=== PATIENT | female | born 1975 | race Caucasian/White ===

== ENCOUNTER 2016-04-23 09:55 | Outpatient (CLI) | payer MEDICAID | END 2016-04-23 09:56 | disposition home or self-care (01) | DX: E04.0 Nontoxic diffuse goiter (principal); F41.8 Other specified anxiety disorders; E66.9 Obesity, unspecified ==

== ENCOUNTER 2017-03-28 14:32 | Emergency (ER) | payer MEDICAID ==
--- NOTE | 2017-03-28 16:33 | ED Physician Documentation ---
PD HPI URI - Stated complaint Stated Complaint: EAR PX/CHEST CONGESTION/DIFF BREATHING - Chief complaint Chief Complaint: Resp - History obtained from History obtained from: Patient - History of Present Illness Timing - onset: Other (1 month of illness with initially cough but now more sinus pressure. Cough is much better. No fevers or possibility of . She does not have any health problems.) Review of Systems Constitutional: denies: Fever, Chills Nose: reports: Rhinorrhea / runny nose, Congestion, Sinus pressure / pain. denies: Epistaxis Throat: reports: Sore throat Respiratory: reports: Cough. denies: Dyspnea GI: denies: Abdominal Pain PD PAST MEDICAL HISTORY - Past Medical History Cardiovascular: None Respiratory: Asthma Neuro: None Endocrine/Autoimmune: None GI: None ELECTRONIC REPAIR TROUBLESHOOTER: None : None HEENT: None Psych: Anxiety Musculoskeletal: None Derm: None - Past Surgical History Past Surgical History: No - Present Medications Home Medications: Ambulatory Orders Medication Instructions Recorded Confirmed Albuterol [Ventolin Hfa] 1 puffs INH DAILY PRN 04/05/14 03/28/17 Beclomethasone 40 Mcg [Qvar 40] 1 puffs INH BID 04/05/14 03/28/17 Venlafaxine [Effexor] 75 mg ORAL DAILY 04/05/14 03/28/17 Amox/Clav 875/125 [Augmentin] 1 each PO Q12H #20 tablet 03/28/17 Mometasone Furoate [Nasonex] 1 spray NS BID #1 spray.pump 03/28/17 predniSONE [Deltasone] 60 mg PO DAILY 5 Days tablet 03/28/17 - Allergies Allergies/Adverse Reactions: Allergies Allergy/AdvReac Type Severity Reaction Status Date / Time latex Allergy Rash Verified 04/05/14 09:53 Penicillins Allergy Unknown Verified 04/05/14 09:53 - Social History Does the pt smoke?: No Smoking Status: Never smoker Does the pt drink ETOH?: No Does the pt have substance abuse?: No - Immunizations Immunizations are current?: Yes - POLST Patient has POLST: No PD ED PE NORMAL - Vitals Vital signs reviewed: Yes - General General: Alert and oriented X 3, No acute distress - HEENT HEENT: Ears normal, Pharynx benign - Neck Neck: Supple, no meningeal sign, No bony TTP, No adenopathy - Cardiac Cardiac: RRR, No murmur - Respiratory Respiratory: No respiratory distress, Clear bilaterally - Abdomen Abdomen: Non tender - Derm Derm: No rash - Neuro Neuro: Alert and oriented X 3, emergency management consultant 2-12 intact Results - Vitals Vitals: Vital Signs - 24 hr 03/28/17 14:49 Temperature 36.5 C Heart Rate 100 Respiratory 16 Rate Blood Pressure 143/93 H O2 Saturation 97 Oxygen O2 Source Room air PD MEDICAL DECISION MAKING - ED course ED course: Symptoms consistent with sinus infection, benign physical findings but given the time course would merit a trial of antibiotics. Departure - Departure Disposition: Home, Self Care Clinical Impression: Sinusitis Qualifiers: Sinusitis location: maxillary Chronicity: acute Recurrence: recurrent Qualified Code(s): J01.01 - Acute recurrent maxillary sinusitis Condition: Good Record reviewed to determine appropriate education?: Yes Instructions: ED Sinusitis Abx Tx, ED Sinusitis No Abx Prescriptions: Amox/Clav 875/125 [Augmentin] 1 each PO Q12H #20 tablet Mometasone Furoate [Nasonex] 1 spray NS BID #1 spray.pump predniSONE [Deltasone] 60 mg PO DAILY 5 Days tablet Comments: Call your doctor to arrange a follow-up appointment, make the next available appointment. In the interim, return anytime if worse or if new symptoms develop. Your blood pressure was elevated today on check into the emergency department. This does not mean that you have hypertension, it is a common phenomenon to come to the emergency department and have elevated blood pressure. I recommend that you see your primary care physician within the week to have it rechecked when you are feeling better.
[2017-03-28 16:43] VITALS: BP 122/84
== END 2017-03-28 16:41 | disposition home or self-care (01) ==
LOC: ED 14:32
DX: J01.01 Acute recurrent maxillary sinusitis (principal); R03.0 Elevated blood-pressure reading, without diagnosis of hypertension; J45.909 Unspecified asthma, uncomplicated
CPT/HCPCS: 99283

== ENCOUNTER 2019-08-17 13:07 | Outpatient (CLI) | payer MEDICAID ==
--- NOTE | 2019-08-18 16:34 | Ultrasound Report ---
Reason: THYROID NODULE,PERIPHERAL EDEMA,HYPERLIPIDEMIA Procedure Date: 08/17/2019 Accession Number: [id number] / [id number] Procedure: US - Head or Neck Soft Tissue CPT Code: Final Report FULL RESULT: EXAM: THYROID ULTRASOUND EXAM DATE: 08/17/2019 03:00 PM. CLINICAL HISTORY: Thyroid nodule, peripheral edema, hyperlipidemia. COMPARISON: THYROID 11/08/2010 9:35 AM. TECHNIQUE: Real time sonographic imaging of the thyroid was performed by the clinical allergist. Multiple automotive sales representative static images were saved for review. FINDINGS: THYROID GLAND: Right Lobe: 6.6 x 3 x 4.3 cm, volume 45.1 cc. Heterogeneous background echotexture. Right Lobe Nodules: There is a part solid and part cystic nodule occupying the majority of the right thyroid lobe which measures 5.3 x 2.9 x 3.6 cm. There are a few small echogenic foci. Similar sonographic appearance compared to prior, previous measurement 5.4 x 4 x 3.1 cm. Left Lobe: 5.7 x 1.5 x 1.7 cm, volume 7.6 cc. Heterogeneous background echotexture. Left Lobe Nodules: 1. Part cystic in the midportion measuring 1.5 x 1.2 x 1.1 cm. Previous measurement 1.5 x 1.2 x 0.9 cm. 2. Part cystic in the lower pole measuring 1.2 x 1.2 x 1.2 cm. Previous measurement 1.4 x 1 x 1 cm. Isthmus: 0.8 cm AP. Normal background echotexture. Isthmic Nodules: None. LYMPH NODES: A lymph node on the right side of the neck measures 2 x 0.8 x 0.8 cm. On the prior exam, a lymph node on the right side of the neck was measured at 2.3 x 0.8 cm, uncertain if this is the same lymph node. OTHER: None. IMPRESSION: 1. Enlarged thyroid gland with bilateral nodules which appear relatively stable in size allowing for differences in technique. 2. The dominant right thyroid nodule meets criteria for tissue sampling. 3. There is an enlarged lymph node demonstrated on the right side of the neck, uncertain if it is the same lymph node that was measured previously. Management recommendations are based on 2015 [place] [employer] Management Guidelines for Adult Patients with Thyroid Nodules and Differentiated Thyroid Cancer. RADIA
== END 2019-08-17 13:08 | disposition home or self-care (01) ==
LOC: DI 13:07
PROVIDERS: ATTEND Family Medicine
DX: E04.2 Nontoxic multinodular goiter (principal); R59.0 Localized enlarged lymph nodes; I34.0 Nonrheumatic mitral (valve) insufficiency; I07.1 Rheumatic tricuspid insufficiency
CPT/HCPCS: 76536; 93306

== ENCOUNTER 2019-08-24 12:50 | Outpatient (CLI) | payer MEDICAID ==
[2019-08-24 18:21] LABS: HGB - HEMOGLOBIN 15.7 g/dL (12.0-16.0); MEAN CORPUSCULAR HGB CONC 31.3 g/dL (32.0-36.0); MEAN CORPUSCULAR VOLUME 89.5 fL (81.0-99.0); RED BLOOD COUNT 5.6 10^6/uL (4.20-5.40); RED CELL DISTRIBUTION WIDTH 15.7 % (12.0-15.0); WHITE BLOOD COUNT 8.1 x10^3/uL (4.8-10.8)
[2019-08-24 18:28] LABS: BUN - BLOOD UREA NITROGEN 20 mg/dL (6-20); CALCIUM 9.2 mg/dL (8.5-10.3); CARBON DIOXIDE - CO2 32 mmol/L (21-32); CHLORIDE 98 mmol/L (101-111); CHOL/HDL RATIO 4.5 (<4.4); CHOLESTEROL 175 mg/dL; CREATININE 0.8 mg/dL (0.4-1.0); GLUCOSE 87 mg/dL (70-100); HDL CHOLESTEROL 39 mg/dL; LDL CHOLESTEROL,CALCULATED 114 mg/dL; LDL/HDL RATIO 2.9 (<4.4); SODIUM 138 mmol/L (135-145); VLDL CHOLESTEROL 22 mg/dL
[2019-08-24 19:15] LABS: FREE T4 (FREE THYROXINE) 0.87 ng/dL (0.58-1.64)
== END 2019-08-24 23:59 | disposition home or self-care (01) ==
LOC: LAB.WCP 12:50
PROVIDERS: ATTEND Family Medicine
DX: R60.9 Edema, unspecified (principal); E78.5 Hyperlipidemia, unspecified; R00.0 Tachycardia, unspecified; E87.6 Hypokalemia; E04.1 Nontoxic single thyroid nodule
CPT/HCPCS: 36415; 80048; 80061; 83721; 83880; 84439; 84443; 85027

== ENCOUNTER 2019-10-11 08:00 | Outpatient (CLI) | payer MEDICAID ==
[2019-10-11 18:02] LABS: HGB - HEMOGLOBIN 14.1 g/dL (12.0-16.0); MEAN CORPUSCULAR HEMOGLOBIN 29.1 pg (27.0-31.0); MEAN CORPUSCULAR HGB CONC 32.5 g/dL (32.0-36.0); MEAN CORPUSCULAR VOLUME 89.5 fL (81.0-99.0); MEAN PLATELET VOLUME 11.3 fL (7.9-10.8); RED BLOOD COUNT 4.85 10^6/uL (4.20-5.40); RED CELL DISTRIBUTION WIDTH 14.6 % (12.0-15.0); WHITE BLOOD COUNT 10.1 x10^3/uL (4.8-10.8)
[2019-10-11 18:34] LABS: CALCIUM 9.2 mg/dL (8.5-10.3); CREATININE 0.7 mg/dL (0.4-1.0)
== END 2019-10-11 23:59 | disposition home or self-care (01) ==
LOC: LAB.WCP 08:00
PROVIDERS: ATTEND Family Medicine
DX: I50.9 Heart failure, unspecified (principal)
CPT/HCPCS: 36415; 80048; 83880; 85027

== ENCOUNTER 2019-11-03 14:20 | Outpatient (CLI) | payer MEDICAID ==
[2019-11-03 18:57] LABS: CALCIUM 9.4 mg/dL (8.5-10.3); CREATININE 0.7 mg/dL (0.4-1.0)
== END 2019-11-03 23:59 | disposition home or self-care (01) ==
LOC: LAB.WCP 14:20
PROVIDERS: ATTEND Internal Medicine Cardiovascular Disease
DX: I50.22 Chronic systolic (congestive) heart failure (principal)
CPT/HCPCS: 36415; 80048

== ENCOUNTER 2019-11-25 08:00 | Outpatient (CLI) | payer MEDICAID ==
[2019-11-25 18:28] LABS: CALCIUM 9.6 mg/dL (8.5-10.3); CREATININE 0.8 mg/dL (0.4-1.0)
== END 2019-11-25 23:59 | disposition home or self-care (01) ==
LOC: LAB.WCP 08:00
PROVIDERS: ATTEND Internal Medicine Cardiovascular Disease
DX: I50.22 Chronic systolic (congestive) heart failure (principal)
CPT/HCPCS: 36415; 80048

== ENCOUNTER 2020-09-12 08:00 | Outpatient (CLI) | payer MEDICAID ==
[2020-09-12 17:49] LABS: BASOPHILS % (AUTO) 0.3 %; EOSINOPHILS # (AUTO) 0.3 10^3/uL (0.0-0.7); EOSINOPHILS % (AUTO) 2.3 %; HCT - HEMATOCRIT 41.4 % (37.0-47.0); LYMPHOCYTES # (AUTO) 2.6 10^3/uL (1.5-3.5); LYMPHOCYTES % (AUTO) 22.8 %; MEAN CORPUSCULAR HGB CONC 31.4 g/dL (32.0-36.0); MEAN CORPUSCULAR VOLUME 92.4 fL (81.0-99.0); MEAN PLATELET VOLUME 11.6 fL (7.9-10.8); MONOCYTES # (AUTO) 0.7 10^3/uL (0.0-1.0); MONOCYTES % (AUTO) 6.3 %; NEUTROPHILS # (AUTO) 7.8 10^3/uL (1.5-6.6); NEUTROPHILS % (AUTO) 67.8 %; PLT - PLATELET COUNT 272 10^3/uL (130-450); RED BLOOD COUNT 4.48 10^6/uL (4.20-5.40); WHITE BLOOD COUNT 11.5 x10^3/uL (4.8-10.8)
[2020-09-12 18:14] LABS: ALBUMIN 3.7 g/dL (3.2-5.5); ALBUMIN/GLOBULIN RATIO 0.8 (1.0-2.2); ALKALINE PHOSPHATASE 78 IU/L (42-121); ALT ALANINE AMINOTRANSFERASE 25 IU/L (10-60); AST ASPARTATE AMINOTRANSFERASE 20 IU/L (10-42); BILIRUBIN,TOTAL 0.4 mg/dL (0.2-1.0); BUN - BLOOD UREA NITROGEN 24 mg/dL (6-20); CARBON DIOXIDE - CO2 26 mmol/L (21-32); CHLORIDE 102 mmol/L (101-111); CHOL/HDL RATIO 6.3 (<4.4); CHOLESTEROL 176 mg/dL; CREATININE 0.8 mg/dL (0.4-1.0); GFR - MDRD 78 (>89); GLUCOSE 111 mg/dL (70-100); HDL CHOLESTEROL 28 mg/dL; LDL CHOLESTEROL,CALCULATED 95 mg/dL; LDL/HDL RATIO 3.4 (<4.4); POTASSIUM 4.1 mmol/L (3.5-5.0); SODIUM 137 mmol/L (135-145); TOTAL PROTEIN 8.4 g/dL (6.7-8.2); TRIGLYCERIDES 265 mg/dL; VLDL CHOLESTEROL 53 mg/dL
[2020-09-12 18:24] LABS: FREE T3 3.21 pg/mL (2.5-3.9)
[2020-09-12 18:25] LABS: FREE T4 (FREE THYROXINE) 1.57 ng/dL (0.58-1.64)
[2020-09-12 21:12] LABS: ESTIMATED AVERAGE GLUCOSE 108 mg/dL (70-100); HEMOGLOBIN A1c% 5.4 % (4.27-6.07)
== END 2020-09-12 23:59 | disposition home or self-care (01) ==
LOC: LAB.WCP 08:00
PROVIDERS: ATTEND Family Medicine
DX: E89.0 Postprocedural hypothyroidism (principal); E66.01 Morbid (severe) obesity due to excess calories
CPT/HCPCS: 36415; 80053; 80061; 82607; 83036; 83721; 84439; 84481; 85025

== ENCOUNTER 2021-06-05 12:39 | Outpatient (CLI) | payer MEDICAID | END 2021-06-05 12:40 | disposition home or self-care (01) | LOC: NS 12:39 | PROVIDERS: ATTEND Family Medicine | DX: Z71.3 Dietary counseling and surveillance (principal); E66.01 Morbid (severe) obesity due to excess calories; Z68.44 Body mass index [BMI] 60.0-69.9, adult | CPT/HCPCS: 97802 ==